=== PATIENT | female | born 1950 | race Caucasian/White ===

== ENCOUNTER 2016-05-28 11:57 | Inpatient (IN) | payer OTHER ==
[~2016-05-28] VITALS: Ht 170.2 cm; Wt 60.0 kg
[2016-05-28 11:58] VITALS: BP 93/53; PULSE 56; RESP 17; TEMP 98.1; O2SAT 99
--- NOTE | 2016-05-28 12:06 | PD ---
HPI Chief Complaint: SYNCOPE Time Seen by Provider: 12:06 Travel History International Travel<30 days: No Contact w/Intl Traveler<30days: No History of Present Illness HPI 65-year-old female with a history of cardiomyopathy and CVA is brought to the emergency department by EMS for evaluation of syncope. Per EMS report the patient was sitting in the waiting room at a local urgent care waiting to be seen when she had an episode of syncope. When they arrived on scene the patient 's blood pressure 78/50 and she was experiencing presyncopal symptoms with nausea. She was given a liter of fluids and Zofran and reports improvement of symptoms. The patient states that for the past week she has felt as though she has a sinus infection. States that she's had nasal congestion and sinus pressure for a week. States that she's also had a mild headache. States that for the past 2 days she's had a productive cough. States that this morning when she woke up she was feeling weak and her cold symptoms were worse so she went to an urgent care to be seen. States that while she was sitting in the urgent care last thing she remember was feeling very lightheaded, nauseous and diaphoretic. She states that she was told that she then passed out. The next and she remembers is EMS arriving and taking her to the hospital. She states that she has a history of stress and viral induced cardiomyopathy that began 2 years ago resulting in an ejection fraction of 20% at that time. States that since she has been on medications and exercising her most recent ejection fraction was 57% 6 months ago. States 2 years ago she had a cardiac catheterization that showed clear coronaries. States that she does have low blood pressure and typically runs about 100/70. States that she did have a stroke as a result of her low ejection fraction, states that she formed a clot in her heart which then caused CVA. She denies any chest pain, shortness of breath, abdominal pain, vomiting, diarrhea, swelling of the extremities, numbness or tingling. The patient is here visiting from [place] for 1 week. No other complaints. [facility] Past Medical History Cardiomyopathy: Yes Cerebrovascular Accident: Yes Social History Alcohol Use: No Tobacco Use: No Allergies-Medications (Allergen,Severity, Reaction): Coded Allergies: Penicillin (Verified Allergy, Unknown, 05/28/16) Reported Meds & Prescriptions Reported Meds & Active Scripts Active Reported Eq Mucus ER (Guaifenesin) 600 Mg Tab 600 Mg PO Q4HR Co Q 10 (Coenzyme Q10 (Ubidecarenone)) 100 Mg Cap 100 Mg PO DAILY Calcium (Calcium Carbonate) 600 Mg Tab 600 Mg PO HS Aspirin DR (Aspirin) 81 Mg Tabdr 81 Mg PO DAILY Atorvastatin (Atorvastatin Calcium) 10 Mg Tab 10 Mg PO HS Spironolactone 25 Mg Tab 25 Mg PO DAILY Lisinopril 5 Mg Tab 5 Mg PO HS Coreg (Carvedilol) 6.25 Mg Tab 6.25 Mg PO HS Coreg (Carvedilol) 3.125 Mg Tab 3.125 Mg PO DAILY Review of Systems Except as stated in HPI: all other systems reviewed are Neg Physical Exam Narrative GENERAL: Well-nourished and well-developed pleasant female patient in no acute distress who is nontoxic appearing. SKIN: Warm and dry. HEAD: Normocephalic and atraumatic. EYES: No injection, drainage, or hyphema noted. PERRLA. EOMI. ENT: No nasal drainage noted. Oropharynx is clear and then a membranes are within normal limits bilaterally. NECK: Supple and the trachea is midline. CARDIOVASCULAR: Regular rate and rhythm. RESPIRATORY: Breath sounds are equal bilaterally with no accessory muscle use, wheezing, rhonchi, or crackles. GASTROINTESTINAL: Abdomen is soft, non-tender, and nondistended. MUSCULOSKELETAL: No obvious deformities, swelling, cyanosis, or ecchymosis is present throughout the upper and lower extremities. Patient has full range of motion without any signs of neurovascular compromise. NEUROLOGICAL: Awake, alert, and oriented. Normal speech and gait. Cranial nerves are grossly intact. Data Data Last Documented VS Vital Signs Date Time Temp Pulse Resp B/P Pulse Ox O2 Delivery O2 Flow Rate FiO2 05/28/16 12:13 100 Room Air 05/28/16 11:58 98.1 56 17 93/53 Orders Electrocardiogram (05/28/16 12:03) Complete Blood Count With Diff (05/28/16 12:03) Comprehensive Metabolic Panel (05/28/16 12:03) Magnesium (Mg) (05/28/16 12:03) B-Type Natriuretic Peptide (05/28/16 12:03) Troponin I (05/28/16 12:03) Act Partial Throm Time (Ptt) (05/28/16 12:03) Prothrombin Time / Inr (Pt) (05/28/16 12:03) Urinalysis - C+S If Indicated (05/28/16 12:03) Chest, Single Ap (05/28/16 12:03) Ecg Monitoring (05/28/16 12:03) Iv Access Insert/Monitor (05/28/16 12:03) Oximetry (05/28/16 12:03) Sodium Chloride 0.9% Flush (Ns Flush) (05/28/16 12:15) Ct Brain W/O Iv Contrast(Rout) (05/28/16 12:13) Influenzae A/B Antigen (05/28/16 13:17) Ceftriaxone Inj (Rocephin Inj) (05/28/16 13:30) Admit Order (Ed Use Only) (05/28/16 14:25) Labs Laboratory Tests Test 05/28/16 05/28/16 12:20 13:55 White Blood Count 2.3 TH/MM3 Red Blood Count 3.85 MIL/MM3 Hemoglobin 11.4 GM/DL Hematocrit 33.9 % Mean Corpuscular Volume 88.1 FL Mean Corpuscular Hemoglobin 29.6 PG Mean Corpuscular Hemoglobin 33.6 % Concent Red Cell Distribution Width 13.9 % Platelet Count 129 TH/MM3 Mean Platelet Volume 9.0 FL Neutrophils (%) (Auto) 65.0 % Lymphocytes (%) (Auto) 21.5 % Monocytes (%) (Auto) 12.5 % Eosinophils (%) (Auto) 0.2 % Basophils (%) (Auto) 0.8 % Neutrophils # (Auto) 1.5 TH/MM3 Lymphocytes # (Auto) 0.5 TH/MM3 Monocytes # (Auto) 0.3 TH/MM3 Eosinophils # (Auto) 0.0 TH/MM3 Basophils # (Auto) 0.0 TH/MM3 CBC Comment DIFF FINAL Differential Comment Prothrombin Time 10.7 SEC Prothromb Time International 1.0 RATIO Ratio Activated Partial 25.7 SEC Thromboplast Time Sodium Level 138 MEQ/L Potassium Level 4.0 MEQ/L Chloride Level 106 MEQ/L Carbon Dioxide Level 22.0 MEQ/L Anion Gap 10 MEQ/L Blood Urea Nitrogen 13 MG/DL Creatinine 1.06 MG/DL Estimat Glomerular Filtration 52 ML/MIN Rate Random Glucose 110 MG/DL Calcium Level 8.3 MG/DL Magnesium Level 1.8 MG/DL Total Bilirubin 0.3 MG/DL Aspartate Amino Transf 20 U/L (AST/SGOT) Alanine Aminotransferase 20 U/L (ALT/SGPT) Alkaline Phosphatase 49 U/L Troponin I LESS THAN 0.02 NG/ML B-Type Natriuretic Peptide 38 PG/ML Total Protein 5.6 GM/DL Albumin 3.4 GM/DL Urine Color YELLOW Urine Turbidity CLEAR Urine pH 7.5 Urine Specific [place] 1.013 Urine Protein 30 mg/dL Urine Glucose (UA) NEG mg/dL Urine Ketones 40 mg/dL Urine Occult Blood NEG Urine Nitrite NEG Urine Bilirubin NEG Urine Urobilinogen 2.0 MG/DL Urine Leukocyte Esterase NEG Urine RBC 2 /hpf Urine WBC 1 /hpf Urine Squamous Epithelial 1 /hpf Cells Urine Hyaline Casts 21 /lpf Urine Mucus FEW /lpf Microscopic Urinalysis Comment CULT NOT INDICATED MDM Medical Decision Making Medical Screen Exam Complete: Yes Emergency Medical Condition: Yes Differential Diagnosis Viral illness versus dehydration versus heart failure versus electrolyte abnormality versus URI versus pneumonia Narrative Course 65-year-old female with a history of cardiomyopathy presents to the emergency department for evaluation of syncopal episode with cough and cold symptoms. Per EMS she was initially hypotensive on scene with a blood pressure of 78/50. Patient's blood pressure now is 93/53. Heart rate is 56 bpm. Physical examination is essentially unremarkable. I reviewed EKG with my attending physician Dr. Riggs and it reads sinus bradycardia with a ventricular rate of 52 bpm, intraventricular conduction delay, normal axis, long QTC 506. Otherwise vital signs are within normal limits. CBC shows mild anemia with hemoglobin 11.4, hematocrit 33.9. Platelets are slightly low at 129. CMP shows mild renal insufficiency with a creatinine of 1.06, GFR 52. No prior for comparison. Mild hypocalcemia with a calcium of 8.3. Troponin is less than 0.02. BNP is within normal limits at 38. Coags are unremarkable. Urinalysis shows 30 protein, 40 ketones, few mucus. Influenza swab is positive for flu B antigen. Chest x-ray shows patchy airspace disease in bilateral lower lobes but worse in right lower lobe. Head CT is negative for any acute abnormalities. Patient has remained stable and without complaint while here in the emergency department. She has been given Rocephin 1 g IV for pneumonia and Tamiflu 75 mg orally for influenza. Withheld Zithromax due to side effects of prolonged QT. The patient will be kept under observation for syncope with prolonged QTc and history of cardiomyopathy. I discussed the case with my attending physician Dr. Garcia who is aware of the patients history, physical examination findings, and treatment plan. Physician Communication Physician Communication I spoke with Dr. Joseph [facility] resident who agrees to admit the patient to Dr. Saba's service. Diagnosis Primary Impression: Syncope Qualified Code: R55 - Syncope, unspecified syncope type Additional Impressions: Prolonged Q-T interval on ECG Pneumonia Qualified Code: J18.9 - Pneumonia of both lower lobes due to infectious organism Influenza B Hx of cardiomyopathy Admitting Information Admitting Physician Requests: Observation Caren Morejon May 28, 2016 12:06
[2016-05-28 12:13] VITALS: O2SAT 100
[2016-05-28] MEDS ORDERED: SODIUM CHLORIDE 0.9% FLUSH 10 ML FLUSH IVF PRN (12:15)
[2016-05-28 12:43] LABS: AUTOMATED NEUTROPHIL # 1.5 TH/MM3 (1.8-7.7); BASOPHIL % 0.8 % (0.0-2.0); EOSINOPHIL % 0.2 % (0.0-4.0); HEMATOCRIT 33.9 % (35.0-46.0); HEMO FLAGS DIFF FINAL; LYMPH % 21.5 % (9.0-44.0); LYMPHOCYTE # 0.5 TH/MM3 (1.0-4.8); MEAN CELL VOLUME 88.1 FL (80.0-100.0); MEAN CORPUSCULAR HEMOGLOBIN 29.6 PG (27.0-34.0); MEAN CORPUSCULAR HGB CONC 33.6 % (32.0-36.0); MONO % 12.5 % (0.0-8.0); PLATELET COUNT 129 TH/MM3 (150-450); RED BLOOD COUNT 3.85 MIL/MM3 (4.00-5.30); RED CELL DISTRIBUTION WIDTH 13.9 % (11.6-17.2); WHITE BLOOD COUNT 2.3 TH/MM3 (4.0-11.0)
[2016-05-28 12:55] LABS: APTT (PATIENT) 25.7 SEC (24.3-30.1); PROTHROMBIN TIME - PATIENT 10.7 SEC (9.8-11.6)
[2016-05-28 13:06] LABS: ALT (GPT) 20 U/L (10-53); ANION GAP 10 MEQ/L (5-15); AST (GOT) 20 U/L (15-37); BLOOD UREA NITROGEN 13 MG/DL (7-18); CHLORIDE 106 MEQ/L (98-107); GLOMERULAR FILTRATION RATE 52 ML/MIN (>89); MAGNESIUM 1.8 MG/DL (1.5-2.5); SODIUM (NA) 138 MEQ/L (136-145)
[2016-05-28 13:09] LABS: ALKALINE PHOSPHATASE 49 U/L (45-117); TOTAL BILIRUBIN ADULT 0.3 MG/DL (0.2-1.0)
--- NOTE | 2016-05-28 13:14 | RADRPT ---
EXAM DATE/TIME: 05/28/2016 12:15 [facility] COMPARISON: No previous studies available for comparison. INDICATIONS : Congestion with shortness of breath, and weakness. MEDICAL HISTORY : Stroke. Myocardial infarction. SURGICAL HISTORY : None. ENCOUNTER: Initial ACUITY: 1 day PAIN SCORE: 0/10 LOCATION: Bilateral chest FINDINGS: Patchy air-space disease is seen in both lung bases worse on the right than the left. The heart is m inimally enlarged. Pulmonary vascularity is normal. There is no pneumothorax. CONCLUSION: Patchy air-space disease right lower lobe. Jorje Wong MD FACR on May 28, 2016 at 13:03 Board Certified Radiologist. This report was verified electronically.
[2016-05-28] MEDS ORDERED: cefTRIAXone INJ 1,000 MG in SODIUM CHLORIDE 0.9% INJ 100 ML IV ONE (13:30)
--- NOTE | 2016-05-28 14:10 | RADRPT ---
EXAM DATE/TIME: 05/28/2016 13:38 [facility] COMPARISON: No previous studies available for comparison. INDICATIONS : Syncopal episode, recent sinus infection RADIATION DOSE: 37.79 CTDIvol (mGy) MEDICAL HISTORY : Cardiovascular disease. SURGICAL HISTORY : None. ENCOUNTER: Initial ACUITY: 1 day PAIN SCALE: 0/10 LOCATION: cranial TECHNIQUE: Multiple contiguous axial images were obtained of the head. Using automated exposure control and adj ustment of the mA and/or kV according to patient size, radiation dose was kept as low as reasonably a chievable to obtain optimal diagnostic quality images. FINDINGS: CEREBRUM: The ventricles are normal for age. No evidence of midline shift, mass lesion, hemorrhage or acute in farction. No extra-axial fluid collections are seen. POSTERIOR FOSSA: The cerebellum and brainstem are intact. The 4th ventricle is midline. The cerebellopontine angle i s unremarkable. EXTRACRANIAL: The visualized portion of the orbits is intact. SKULL: The calvaria is intact. No evidence of skull fracture. CONCLUSION: Negative exam. Angus Xavier MD on May 28, 2016 at 14:08 Board Certified Radiologist. This report was verified electronically.
[2016-05-28] MEDS ORDERED: ATOR10TA15 PO (14:24)
[2016-05-28] MEDS ORDERED: CO Q100C9 PO (14:24)
[2016-05-28] MEDS ORDERED: SPIR25TA PO (14:24)
[2016-05-28] MEDS ORDERED: LISI-519 PO (14:24)
[2016-05-28] MEDS ORDERED: CARV6.25 PO (14:24)
[2016-05-28] MEDS ORDERED: ASPI81TA5 PO (14:24)
[2016-05-28] MEDS ORDERED: CARV3.125 PO (14:24)
[2016-05-28] MEDS ORDERED: CALC600T25 PO (14:24)
[2016-05-28] MEDS ORDERED: GUAI1TAB15 PO (14:24)
--- NOTE | 2016-05-28 14:26 | HHI.HP ---
HPI Service Family Medicine Primary Care Physician Non-Staff Admission Diagnosis Syncope, Prolonged QT, Pneumonia, Influenza B Diagnoses: International Travel<30 Days: No Contact w/Intl Traveler<30days: No Known Affected Area: No History of Present Illness HPI: 65 y/o female presenting after syncopal episode. Had a sinus infection in March (has deviated septum) - treated with Clindamycin. Since that time, she has been feeling well up until Thursday, 2016. At the same time she was experiencing sinus pain. Over the course of the week --- kept feeling chilled. Started with dry cough 1-2 days ago. Also she experienced increasing sinus pressure under her eyes. Increasing post nasal drip and +body aches. Her ribs hurt when she coughs. More recently, she was sitting in urgent care and she felt her face was feeling tingling. says that "I don't think she ever really passed out." The last thing she remembers was looking at her phone, and then when say came to, she saw the paramedics and physician at her side. She reports sweating profusely. She reports staying adequately hydrated. Denies bowel or bladder loss. Denies uncontrollable movement of limbs. Denies palpitations. Episode last about 5mintues. Last suffered bronchitis and pneumonia 2 years ago that was treated as an outpatient. Previous syncopal episode with extreme emotions - watching video on surgery. ( Guillaume Joseph MD R2) Review of Systems Constitutional: COMPLAINS OF: Fatigue, Chills, Dizziness, DENIES: Fever, Change in appetite Eyes: DENIES: Blurred vision Ears, nose, mouth, throat: COMPLAINS OF: Nasal discharge, Running Nose, Sinus Pain Respiratory: COMPLAINS OF: Cough, Shortness of breath Cardiovascular: COMPLAINS OF: Syncope, DENIES: Chest pain, Lower Extremity Edema, Orthopnea Gastrointestinal: COMPLAINS OF: Nausea, DENIES: Abdominal pain, Black stools, Bloody stools, Constipation, Diarrhea, Vomiting Musculoskeletal: DENIES: Joint pain Integumentary: DENIES: Rash Neurologic: COMPLAINS OF: Headache (Guillaume Joseph MD R2) Past Family Social History Past Medical History Cardiomyopathy - Viral with EF 20% in 2014 - Last ECHO 2014 59% HTN Past Surgical History Denies (Guillaume Joseph MD R2) Allergies: Coded Allergies: Penicillin (Verified Allergy, Unknown, 05/28/16) Family History Patient reports no significant heart disease, cancer, or DM in her immediate family. Social History EtOH remotely Tob denies No IVDU, illicits From [place] and returning on 06/02/16. (Guillaume Joseph MD R2) Physical Exam Vital Signs Vital Signs Date Time Temp Pulse Resp B/P Pulse Ox O2 Delivery O2 Flow Rate FiO2 05/28/16 12:13 100 Room Air 05/28/16 12:13 99 Room Air 05/28/16 11:58 98.1 56 17 93/53 99 Physical Exam GENERAL: NAD, breathing comfortably. SKIN: No rashes, ecchymoses or lesions. Cool and dry. HEAD: TTP over maxillary sinuses. EYES: Pupils equal round and reactive. Extraocular motions intact. ENT: Nose without bleeding, purulent drainage or septal hematoma. NECK: Trachea midline. No JVD or lymphadenopathy. CARDIOVASCULAR: Regular rate and rhythm without murmurs, gallops, or rubs. RESPIRATORY: Clear to auscultation. GASTROINTESTINAL: Abdomen soft, non-tender, nondistended. MUSCULOSKELETAL: Extremities without clubbing, cyanosis, or edema. No joint tenderness, effusion, or edema noted. No calf tenderness. Negative Homans sign bilaterally. NEUROLOGICAL: Awake and alert. Cranial nerves II through XII intact. Motor and sensory grossly within normal limits. Five out of 5 muscle strength in all muscle groups. Normal speech. Laboratory Laboratory Tests Test 05/28/16 12:20 White Blood Count 2.3 Red Blood Count 3.85 Hemoglobin 11.4 Hematocrit 33.9 Mean Corpuscular Volume 88.1 Mean Corpuscular Hemoglobin 29.6 Mean Corpuscular Hemoglobin 33.6 Concent Red Cell Distribution Width 13.9 Platelet Count 129 Mean Platelet Volume 9.0 Neutrophils (%) (Auto) 65.0 Lymphocytes (%) (Auto) 21.5 Monocytes (%) (Auto) 12.5 Eosinophils (%) (Auto) 0.2 Basophils (%) (Auto) 0.8 Neutrophils # (Auto) 1.5 Lymphocytes # (Auto) 0.5 Monocytes # (Auto) 0.3 Eosinophils # (Auto) 0.0 Basophils # (Auto) 0.0 CBC Comment DIFF FINAL Differential Comment Prothrombin Time 10.7 Prothromb Time International 1.0 Ratio Activated Partial 25.7 Thromboplast Time Sodium Level 138 Potassium Level 4.0 Chloride Level 106 Carbon Dioxide Level 22.0 Anion Gap 10 Blood Urea Nitrogen 13 Creatinine 1.06 Estimat Glomerular Filtration 52 Rate Random Glucose 110 Calcium Level 8.3 Magnesium Level 1.8 Total Bilirubin 0.3 Aspartate Amino Transf 20 (AST/SGOT) Alanine Aminotransferase 20 (ALT/SGPT) Alkaline Phosphatase 49 Troponin I LESS THAN 0.02 B-Type Natriuretic Peptide 38 Total Protein 5.6 Albumin 3.4 Date/Time Procedure Status Source Growth 05/28/16 13:55 Influenza Types A,B Antigen (ADDIE) - Final Complete Nasal Washing Positive For Flu B Antigen (Guillaume Joseph MD R2) Result Diagram: 05/28/16 1220 05/28/16 1220 Imaging Last [address] 05/28/16 1213 Signed Impressions: Service Date/Time: Thursday, May 28, 2016 13:38 - CONCLUSION: Negative exam. Angus Xavier MD (Guillaume Joseph MD R2) Septic Shock Reassessment Heart: Regular rate and rhythm Lungs: Clear Skin: Warm Peripheral Pulses: Bounding Right Radial Bounding Left Radial (Guillaume Jsoeph MD R2) Assessment and Plan Assessment and Plan 65 y/o pleasant female with PMHx of recurrent sinus infections, viral cardiopathy in 2013 that resulted in an EF of 20% --> corrected to 59% in 2016, and bronchitis, who presented to [facility] via [facility] after ahving a syncopal episode at an urgent care. Found to be hypotensive to 78/50, and satting at 85% . CXR showed RLL patchy infiltrate, she has received Rocephin x 1 and will be admitted for syncope work-up, community acquired pneumonia, and +Flu. Code Status Full Code. (Guillaume Joseph MD R2) Attending Attestation THIS CASE WAS DISCUSSED WITH THE RESIDENT PHYSICIAN. I HAVE REVIEWED THE RECORD AND AGREE WITH THE ABOVE NOTE AND PLAN OF CARE WAS DISCUSSED. I HAVE AUTHORIZED THE ORDER FOR PLACEMENT IN OUT-PATIENT OBSERVATION STATUS. (Chandler Saba MD) Problem List: (1) Pneumonia Status: Acute Plan: CXR showed patchy airspace disease in RLL. Will treat as CAP. -Rocephin 1 g q 24 hr IV -Doxy instead of Azithro for atypical coverage (100 mg q 12 hr IV) given QT prolongation. -Solumedrol 40 q 12 hr IV -Breathing tx (duonebs) q 6 hrs schedule, albuterol neb q 2 hr PRN SOB -Guaifen-DM 200-20 mg 10 mg q 4 hours cough -Sputum culture, legionella and strep ag in urine -Incentive spirometry -Vitals q 4 hours, O2 as needed. (2) Prolonged Q-T interval on ECG Status: Acute Plan: QT in 2016 was 490 - Today Avoid QT prolonging meds - i.e. Macrolides and Zofran. (3) Syncope Status: Acute Plan: Impression: Likely related to dehydration and underlying infection (Flu / CAP). Not concerning for seizures. Cannot rule out cardiac origin. -Give 2 L NS bolus to increase BP -ECHO to rule out worsening cardiomyopathy -Trop and EKG x 2; LBBB has been seen on previous EKG in May 2015, first trop negtaive. -Head CT was negative for acute change (infarct or bleed) -Orthostatic Vitals -ASA 81 mg daily (4) Influenza B Status: Acute Plan: Tamiflu 75 mg PO daily x 10 days. Fluid support Rest Droplet precautions (5) Hx of cardiomyopathy Status: Acute Plan: ECHO as above. (6) Nutrition, metabolism, and development symptoms Status: Acute Plan: Nut: Reg basic Electrolytes: at goal. DVT: Lovenox 30 mg sq daily with SCDs. dw Dr. Saba sdw Dr. Ella Nayak. (Guillaume Joseph MD R2) Problem Qualifiers (1) Pneumonia: Qualified Code: J18.9 - Pneumonia of both lower lobes due to infectious organism (2) Syncope: Qualified Code: R55 - Syncope, unspecified syncope type Guillaume Joseph MD R2 May 28, 2016 14:26 Chandler Saba MD May 28, 2016 16:33
[2016-05-28 14:27] LABS: BLOOD, URINE NEG (NEG); COMMENT (UR) CULT NOT INDICATED; CULTURE IF INDICATED CULT NOT INDICATED; GLUCOSE,URINE NEG (NEG); HYALINE CAST, URINE 21 /lpf (RARE); KETONE, URINE 40 mg/dL (NEG); MUCUS URINE FEW /lpf (OCC); NITRITE,URINE NEG (NEG); PH, URINE 7.5 (5.0-8.5); SQUAMOUS EPITHELIAL CELL URINE 1 /hpf (0-5); URINE COLOR YELLOW (YELLW/STRAW)
[2016-05-28 14:28] VITALS: BP 91/53; PULSE 59; RESP 20; TEMP 98.4; O2SAT 97
[2016-05-28] MEDS ORDERED: OSELTAMIVIR PHOSPHATE 75 MG CAP PO ONE (14:30)
[2016-05-28] MEDS ORDERED: RESP: ALBUTEROL 2.5 MG/IPRATROPIUM 0.5 MG NEB (PRN) INH (14:45)
[2016-05-28] MEDS ORDERED: BISACODYL 10 MG SUPP RECTAL PRN (14:45)
[2016-05-28] MEDS ORDERED: NALOXONE HCL 0.4 MG/ML AMP IV PRN (14:45)
[2016-05-28] MEDS ORDERED: ACETAMINOPHEN 325 MG TAB PO PRN (14:45)
[2016-05-28] MEDS ORDERED: SODIUM CHLORIDE 0.9% FLUSH 10 ML FLUSH IV FLUSH PRN (14:45)
[2016-05-28] MEDS ORDERED: SODIUM CHLOR 0.9% 1000 ML INJ 1,000 ML IV ONE (15:00)
[2016-05-28] MEDS ORDERED: guaiFENesin/DEXTROMETHORPHAN 200 MG/20 MG/10 ML CUP PO PRN (15:00)
[2016-05-28] MEDS: guaiFENesin E.R. 600 MG TAB PO SCH ×3 (16:00→23:48)
[2016-05-28] MEDS: RESP: ALBUTEROL 2.5 MG/IPRATROPIUM 0.5 MG NEB (SCH) INH ×2 (16:02→21:16)
--- NOTE | 2016-05-28 16:33 | HHI.HP ---
HPI Service Family Medicine Primary Care Physician Non-Staff Admission Diagnosis Syncope, Prolonged QT, Pneumonia, Influenza B Diagnoses: (1) Pneumonia (2) Prolonged Q-T interval on ECG (3) Syncope (4) Influenza B (5) Hx of cardiomyopathy (6) Nutrition, metabolism, and development symptoms International Travel<30 Days: No Contact w/Intl Traveler<30days: No Known Affected Area: No History of Present Illness 65-year-old female presenting to the emergency department following a syncopal episode at an urgent care. She went to the urgent care earlier today for one- week history of subjective fevers and chills with body aches, nonproductive cough, and sinus pressure under her eyes with sinus pain. She has been " putting up" with these symptoms for the last week, however developed chest discomfort with coughing this morning and decided to present to the urgent care. While at the urgent care, she was sitting down and leaning forward when she had an apparent syncopal episode. She did not hit her head, did not lose bowel or bladder incontinence, did not have any seizure type activity. Review of Systems Constitutional: COMPLAINS OF: Diaphoretic episodes, Fever, Chills, DENIES: Dizziness Eyes: DENIES: Blurred vision, Eye pain, Double Vision Ears, nose, mouth, throat: COMPLAINS OF: Nasal discharge, Running Nose, Sinus Pain, DENIES: Throat pain, Toothache Respiratory: COMPLAINS OF: Cough, DENIES: Wheezing, Sputum production, Shortness of breath Cardiovascular: COMPLAINS OF: Chest pain, DENIES: Palpitations, Dyspnea on Exertion, Lower Extremity Edema Gastrointestinal: DENIES: Abdominal pain, Constipation, Diarrhea, Nausea, Vomiting Musculoskeletal: COMPLAINS OF: Muscle aches, DENIES: Joint pain, Back pain, Neck pain Psychiatric: COMPLAINS OF: Anxiety Past Family Social History Past Medical History Cardiomyopathy - Viral with EF 20% in 2014 - Last ECHO 2014 59% HTN Past Surgical History Denies Reported Medications Reported Eq Mucus ER (Guaifenesin) 600 Mg Tab 600 Mg PO Q4HR Co Q 10 (Coenzyme Q10 (Ubidecarenone)) 100 Mg Cap 100 Mg PO DAILY Calcium (Calcium Carbonate) 600 Mg Tab 600 Mg PO HS Aspirin DR (Aspirin) 81 Mg Tabdr 81 Mg PO DAILY Atorvastatin (Atorvastatin Calcium) 10 Mg Tab 10 Mg PO HS Spironolactone 25 Mg Tab 25 Mg PO DAILY Lisinopril 5 Mg Tab 5 Mg PO HS Coreg (Carvedilol) 6.25 Mg Tab 6.25 Mg PO HS Coreg (Carvedilol) 3.125 Mg Tab 3.125 Mg PO DAILY Allergies: Coded Allergies: Penicillin (Verified Allergy, Unknown, 05/28/16) Family History Patient reports no significant heart disease, cancer, or DM in her immediate family. Social History EtOH remotely Tob denies No IVDU, illicits From [place] and returning on 06/02/16. Physical Exam Vital Signs Vital Signs Date Time Temp Pulse Resp B/P Pulse Ox O2 Delivery O2 Flow Rate FiO2 05/28/16 14:28 98.4 59 20 91/53 97 Room Air 05/28/16 12:13 100 Room Air 05/28/16 12:13 99 Room Air 05/28/16 11:58 98.1 56 17 93/53 99 Physical Exam GENERAL: NAD, breathing comfortably. SKIN: No rashes, ecchymoses or lesions. Cool and dry. HEAD: TTP over maxillary sinuses. EYES: Pupils equal round and reactive. Extraocular motions intact. NECK: Trachea midline. No JVD or lymphadenopathy. CARDIOVASCULAR: Regular rate and rhythm without murmurs, gallops, or rubs. RESPIRATORY: Clear to auscultation. GASTROINTESTINAL: Abdomen soft, non-tender, nondistended. MUSCULOSKELETAL: Extremities without clubbing, cyanosis, or edema. NEUROLOGICAL: Awake and alert. Laboratory Laboratory Tests Test 05/28/16 05/28/16 12:20 13:55 White Blood Count 2.3 Red Blood Count 3.85 Hemoglobin 11.4 Hematocrit 33.9 Mean Corpuscular Volume 88.1 Mean Corpuscular Hemoglobin 29.6 Mean Corpuscular Hemoglobin 33.6 Concent Red Cell Distribution Width 13.9 Platelet Count 129 Mean Platelet Volume 9.0 Neutrophils (%) (Auto) 65.0 Lymphocytes (%) (Auto) 21.5 Monocytes (%) (Auto) 12.5 Eosinophils (%) (Auto) 0.2 Basophils (%) (Auto) 0.8 Neutrophils # (Auto) 1.5 Lymphocytes # (Auto) 0.5 Monocytes # (Auto) 0.3 Eosinophils # (Auto) 0.0 Basophils # (Auto) 0.0 CBC Comment DIFF FINAL Differential Comment Prothrombin Time 10.7 Prothromb Time International 1.0 Ratio Activated Partial 25.7 Thromboplast Time Sodium Level 138 Potassium Level 4.0 Chloride Level 106 Carbon Dioxide Level 22.0 Anion Gap 10 Blood Urea Nitrogen 13 Creatinine 1.06 Estimat Glomerular Filtration 52 Rate Random Glucose 110 Calcium Level 8.3 Magnesium Level 1.8 Total Bilirubin 0.3 Aspartate Amino Transf 20 (AST/SGOT) Alanine Aminotransferase 20 (ALT/SGPT) Alkaline Phosphatase 49 Total Creatine Kinase 89 Troponin I LESS THAN 0.02 B-Type Natriuretic Peptide 38 Total Protein 5.6 Albumin 3.4 Urine Color YELLOW Urine Turbidity CLEAR Urine pH 7.5 Urine Specific [place] 1.013 Urine Protein 30 Urine Glucose (UA) NEG Urine Ketones 40 Urine Occult Blood NEG Urine Nitrite NEG Urine Bilirubin NEG Urine Urobilinogen 2.0 Urine Leukocyte Esterase NEG Urine RBC 2 Urine WBC 1 Urine Squamous Epithelial 1 Cells Urine Hyaline Casts 21 Urine Mucus FEW Microscopic Urinalysis Comment CULT NOT INDICATED Date/Time Procedure Status Source Growth 05/28/16 13:55 Influenza Types A,B Antigen (ADDIE) - Final Complete Nasal Washing Positive For Flu B Antigen Result Diagram: 05/28/16 1220 05/28/16 1220 Imaging Last [address] 05/28/16 1213 Signed Impressions: Service Date/Time: Saturday, May 28, 2016 13:38 - CONCLUSION: Negative exam. Angus Xavier MD Chest x-ray: Patchy airspace disease of the right lower lobe Assessment and Plan Assessment and Plan 65 y/o pleasant female with PMHx of recurrent sinus infections, viral cardiopathy in 2014 that resulted in an EF of 20% --> corrected to 59% in 2016, and bronchitis, who presented to [facility] via [facility] after ahving a syncopal episode at an urgent care. Found to be hypotensive to 78/50, and satting at 85% . CXR showed RLL patchy infiltrate, she has received Rocephin x 1 and will be admitted for syncope work-up, community acquired pneumonia, and +Flu. Problem List: (1) Pneumonia Status: Acute Plan: CXR showed patchy airspace disease in RLL. Will treat as CAP. -Rocephin 1 g q 24 hr IV -Doxy instead of Azithro for atypical coverage (100 mg q 12 hr IV) given QT prolongation. -Solumedrol 40 q 12 hr IV -Breathing tx (duonebs) q 6 hrs schedule, albuterol neb q 2 hr PRN SOB -Guaifen-DM 200-20 mg 10 mg q 4 hours cough -Sputum culture, legionella and strep ag in urine -Incentive spirometry -Vitals q 4 hours, O2 as needed. (2) Prolonged Q-T interval on ECG Status: Acute Plan: QT in 2016 was 490 - Today QTC is 510 Avoid QT prolonging meds - i.e. Macrolides and Zofran. (3) Syncope Status: Acute Plan: Impression: Likely related to dehydration and underlying infection (Flu / CAP). Not concerning for seizures. Cannot rule out cardiac origin. -Give 2 L NS bolus to increase BP -ECHO to rule out worsening cardiomyopathy -Trop and EKG x 2; LBBB has been seen on previous EKG in May 2015, first trop negtaive. -Head CT was negative for acute change (infarct or bleed) -Orthostatic Vitals -ASA 81 mg daily (4) Influenza B Status: Acute Plan: Tamiflu 75 mg PO daily x 10 days. Fluid support Rest Droplet precautions (5) Hx of cardiomyopathy Status: Acute Plan: ECHO as above. (6) Nutrition, metabolism, and development symptoms Status: Acute Plan: Nut: Reg basic Electrolytes: at goal. DVT: Lovenox 30 mg sq daily with SCDs. dw Dr. Wandy paizw Dr. Ella Nayak. Problem Qualifiers (1) Pneumonia: Qualified Code: J18.9 - Pneumonia of both lower lobes due to infectious organism (2) Syncope: Qualified Code: R55 - Syncope, unspecified syncope type Chandler Saba MD May 28, 2016 16:33
[2016-05-28] MEDS: methylPREDNISolone SOD SUCC 40 MG/1 ML VIAL IV SCH (17:39)
[2016-05-28] MEDS: ENOXAPARIN SODIUM 30 MG/0.3 ML SYRINGE SQ SCH (17:42)
[2016-05-28] MEDS: SODIUM CHLOR 0.9% 1000 ML INJ 1,000 ML IV SCH ×2 (17:43→23:49)
[2016-05-28] MEDS: DOXYCYCLINE INJ 100 MG in SODIUM CHLORIDE 0.9% INJ 100 ML IV SCH (18:11)
[2016-05-28 18:39] VITALS: BP 130/60; PULSE 58; RESP 16; TEMP 98; O2SAT 96
[2016-05-28 19:12] VITALS: BP 122/59; PULSE 63; RESP 20; TEMP 97.4; O2SAT 95
[2016-05-28] MEDS: SODIUM CHLORIDE 0.9% FLUSH 10 ML FLUSH IV FLUSH SCH (20:15)
[2016-05-28] MEDS ORDERED: ATORVASTATIN 10 MG TAB PO SCH (21:00)
[2016-05-28 23:53] VITALS: BP 115/56; PULSE 53; RESP 20; TEMP 97.5; O2SAT 98
[2016-05-29] VITALS (7 sets, daily range): BP systolic 101–125; BP diastolic 52–98; PULSE 47–64; RESP 17–20; TEMP 97.4–97.8; O2SAT 95–98
[2016-05-29] MEDS: methylPREDNISolone SOD SUCC 40 MG/1 ML VIAL IV SCH ×2 (04:18→12:52)
[2016-05-29] MEDS: DOXYCYCLINE INJ 100 MG in SODIUM CHLORIDE 0.9% INJ 100 ML IV SCH (04:18)
[2016-05-29] MEDS: guaiFENesin E.R. 600 MG TAB PO SCH ×3 (04:18→12:51)
[2016-05-29] MEDS: RESP: ALBUTEROL 2.5 MG/IPRATROPIUM 0.5 MG NEB (SCH) INH ×2 (04:31→09:00)
[2016-05-29 07:15] LABS: ALT (GPT) 20 U/L (10-53); ANION GAP 9 MEQ/L (5-15); AST (GOT) 24 U/L (15-37); BICARBONATE 22.2 MEQ/L (21.0-32.0); BLOOD UREA NITROGEN 10 MG/DL (7-18); CHLORIDE 109 MEQ/L (98-107); GLOMERULAR FILTRATION RATE 78 ML/MIN (>89); POTASSIUM 4.2 MEQ/L (3.5-5.1); SODIUM (NA) 140 MEQ/L (136-145)
[2016-05-29 07:17] LABS: ALKALINE PHOSPHATASE 43 U/L (45-117); TOTAL BILIRUBIN ADULT 0.2 MG/DL (0.2-1.0)
[2016-05-29 07:40] LABS: AUTOMATED NEUTROPHIL # 1.7 TH/MM3 (1.8-7.7); BASOPHIL % 0.3 % (0.0-2.0); HEMATOCRIT 31.9 % (35.0-46.0); HEMO FLAGS DIFF FINAL; LYMPH % 25.6 % (9.0-44.0); LYMPHOCYTE # 0.6 TH/MM3 (1.0-4.8); MEAN CELL VOLUME 88.7 FL (80.0-100.0); MEAN CORPUSCULAR HEMOGLOBIN 29.6 PG (27.0-34.0); MEAN CORPUSCULAR HGB CONC 33.4 % (32.0-36.0); MONO % 5.3 % (0.0-8.0); NEUT % 68.8 % (16.0-70.0); PLATELET COUNT 130 TH/MM3 (150-450); RED CELL DISTRIBUTION WIDTH 14.3 % (11.6-17.2); WHITE BLOOD COUNT 2.5 TH/MM3 (4.0-11.0)
[2016-05-29] MEDS: SODIUM CHLORIDE 0.9% FLUSH 10 ML FLUSH IV FLUSH SCH (09:00)
[2016-05-29] MEDS: OSELTAMIVIR PHOSPHATE 75 MG CAP PO SCH ×2 (09:00→09:55)
[2016-05-29] MEDS ORDERED: ASPIRIN EC 81 MG TABEC PO SCH (09:00)
[2016-05-29] MEDS: SODIUM CHLOR 0.9% 1000 ML INJ 1,000 ML IV SCH (10:01)
[2016-05-29] MEDS ORDERED: cefTRIAXone INJ 1,000 MG in SODIUM CHLORIDE 0.9% INJ 100 ML IV SCH (12:00)
--- NOTE | 2016-05-29 12:11 | EC ---
Study Study Date:05/29/2016 STUDY CONCLUSIONS SUMMARY - Left ventricle: The cavity size was normal. Wall thickness was normal. Systolic function was mildly reduced. The estimated ejection fraction was in the range of 45% to 50%. Wall motion was normal; there were no regional wall motion abnormalities. - Aortic valve: Moderate regurgitation. Valve area: 2.28cm^2 (Vmax). - Left atrium: The atrium was dilated. Recommendations: Transesophageal echocardiography should be performed. If LV function is below 40, please consider prescribing an ACEI or ARB or document rationale for non-use. PROCEDURE DATA STUDY STATUS: Elective. Procedure: Transthoracic echocardiography. Image quality was good. Scanning was performed from the parasternal, apical, and subcostal acoustic windows. Study completion: The patient tolerated the procedure well. Transthoracic echocardiography. M-mode, complete 2D, complete spectral Doppler, and color Doppler. Height: Height: 67in. Weight: Weight: 134.7lb. Body mass index: BMI: 21.1kg/m^2. Body surface area: BSA: 1.71m^2. Patient status: Inpatient. CARDIAC ANATOMY LEFT VENTRICLE: The cavity size was normal. Wall thickness was normal. Systolic function was mildly reduced. The estimated ejection fraction was in the range of 45% to 50%. Wall motion was normal; there were no regional wall motion abnormalities. AORTIC VALVE: Trileaflet; normal thickness leaflets. Doppler: Transvalvular velocity was within the normal range. There was no stenosis. Moderate regurgitation. Valve area: 2.28cm^2 (Vmax). Indexed valve area: 1.33cm^2/m^2 (Vmax). Peak gradient: 12mm Hg (S). AORTA: The aorta was mildly dilated. Aortic root: The aortic root was normal in size. MITRAL VALVE: Structurally normal valve. Doppler: Transvalvular velocity was within the normal range. There was no evidence for stenosis. No regurgitation. Valve area by pressure half-time: 4cm^2. Indexed valve area by pressure half-time: 2.34cm^2/m^2. Peak gradient: 2mm Hg (D). LEFT ATRIUM: The atrium was dilated. RIGHT VENTRICLE: The cavity size was normal. Wall thickness was normal. PULMONIC VALVE: Doppler: Transvalvular velocity was within the normal range. There was no evidence for stenosis. No regurgitation. TRICUSPID VALVE: Structurally normal valve. Doppler: Transvalvular velocity was within the normal range. No regurgitation. Peak gradient: 19mm Hg (D). PULMONARY ARTERY: The main pulmonary artery was normal-sized. Systolic pressure was within the normal range. RIGHT ATRIUM: The atrium was normal in size. PERICARDIUM: There was no pericardial effusion. SYSTEMIC VEINS: Inferior vena cava: The vessel was normal in size. Patient weight: 134.7lb _Ejection fraction:_ 65-75% _Fractional shortening:_ 32% up to 5Kg 5-11.5Kg 11.6-22.9Kg 23-45Kg 45-57Kg Aortic Root 7-13 <17 13-22 17-27 17-27 LA diam 6-13 <23 24-38 33-47 37-40 RVID 10-17 7-15 7-15 7-18 8-17 LVIDd 12-22 <32 24-38 33-47 37-40 LVPW 2-4 3-6 5-7 6-8 7-8 IVS 2-4 3-6 5-7 6-8 7-8 BASIC MEASUREMENTS ADULT NORMAL Left ventricle LV internal dimension, ED, chordal 51.7 mm 43-52 level, PLAX LV internal dimension, ES, chordal *41.8 mm 23-38 level, PLAX Fractional shortening, chordal level, *19 % >29 PLAX LV posterior wall thickness, ED 8.46 mm IVS/LVPW ratio, ED 1.03 <1.3 Volume, ED, MOD, 1-plane 161 ml Volume, ES, MOD, 1-plane 66 ml Ejection fraction, MOD, 1-plane 59 % Stroke volume, MOD, 1-plane 95 ml Volume index, ED, MOD, 1-plane 94 ml/m^2 Volume index, ES, MOD, 1-plane 39 ml/m^2 Stroke index, MOD, 1-plane 55.6 ml/m^2 Volume, ED, MOD, 2-plane 126 ml Volume, ES, MOD, 2-plane 48 ml Ejection fraction, MOD, 2-plane 62 % Stroke volume, MOD, 2-plane 78 ml Volume index, ED, MOD, 2-plane 74 ml/m^2 Volume index, ES, MOD, 2-plane 28 ml/m^2 Stroke index, MOD, 2-plane 45.6 ml/m^2 Ventricular septum Septal thickness, ED 8.74 mm Aortic valve Leaflet separation 24 mm 15-26 Aorta Root diameter, ED 40 mm Left atrium Anterior-posterior dimension 44 mm Anterior-posterior dimension index *2.57 cm/m^2 <2.2 Right ventricle RV internal dimension, ED, PLAX *41.5 mm 19-38 BASIC MEASUREMENTS ADULT NORMAL Left ventricle LV internal dimension, ED 48.2 mm 37-56 LV internal dimension, ES 35.5 mm Fractional shortening *26 % 29-45 LV posterior wall, ED 11 mm 6-11 Septal/posterior wall ratio, ED 0.96 Relative wall thickness, ED *0.46 <0.45 Volume, ED, Teichholz 109 ml Volume, ES, Teichholz 52.6 ml Ejection fraction, Teichholz *51.7 % 64-83 Stroke volume, Teichholz 56.4 ml Volume index, ED, Teichholz 64 ml/m^2 Volume index, ES, Teichholz 31 ml/m^2 Stroke index, Teichholz 33 ml/m^2 Wall mass 190.4 g Wall mass index 111.3 g/m^2 Mass/height 1.12 g/cm Ventricular septum Septal thickness, ED 10.6 mm Aortic valve Leaflet separation 24 mm 15-26 Aorta Root diameter, ED *40 mm 20-37 DOPPLER MEASUREMENTS ADULT NORMAL Aortic valve Peak velocity, S 175 cm/s Peak gradient, S 12 mm Hg Valve area, Vmax 2.28 cm^2 Valve area index, Vmax 1.33 cm^2/m^2 Regurgitant velocity, ED 460 cm/s Regurgitant deceleration 1930 cm/s^2 Regurgitant pressure half-time 710 ms Regurgitant gradient, ED 85 mm Hg Mitral valve Peak E-wave velocity 77 cm/s Peak A-wave velocity 60.7 cm/s Pressure half-time 55 ms Peak gradient, D 2 mm Hg Peak E/A ratio 1.3 Valve area, pressure half-time 4 cm^2 Valve area index, pressure half-time 2.34 cm^2/m^2 Tricuspid valve Peak gradient, D 19 mm Hg Maximal inflow velocity 194 cm/s Systemic veins Estimated CVP 10 mm Hg Pulmonic valve Peak velocity, S 106 cm/s LEGEND: Mean values are shown as u=mean value. Asterisk (*) adkins values outside specified normal range. Prepared and signed by Scott Fu [id number]
[2016-05-29] MEDS ORDERED: DOXY100C PO ×2 (12:15→15:34)
[2016-05-29] MEDS ORDERED: OSEL75 PO (12:15)
--- NOTE | 2016-05-29 12:17 | HHI.DCPOC ---
Discharge Care Plan Diagnosis: (1) Hx of cardiomyopathy (2) Pneumonia (3) Influenza B (4) Syncope Goals to Promote Your Health See your physician specialist as scheduled. Call to notify them of current hospitalization; they may be able to request records to expedite follow-up. Please request echocardiogram, lab results, and physician documentation for this hospital stay prior to follow-up or request that your cardiology office does this. Take medications as prescribed. Directions to Meet Your Goals Take your medications as prescribed Follow your dietary instruction Follow activity as directed Keep your appointments as scheduled Take your immunizations and boosters as scheduled If your symptoms worsen call your PCP, if no PCP go to Urgent Care Center or Emergency Room Smoking is Dangerous to Your Health. Avoid second hand smoke Call the 24-hour hour crisis hotline for domestic abuse at Ella Nayak MD R1 May 29, 2016 12:17
--- NOTE | 2016-05-29 12:32 | HHI.FPPN ---
Subjective Remarks Patient was seen and examined this morning. She feels "great" and notes no chest pain, shortness of breath, fevers, chills, sweats. She offers that she did walk 6 miles outside the day before presenting due to being on vacation. She has no new symptoms, reporting also normal bowel and bladder function. No syncopal episodes and no shortness of breath with walking. Objective Vitals Vital Signs Date Time Temp Pulse Resp B/P Pulse Ox O2 Delivery O2 Flow Rate FiO2 05/29/16 10:36 54 20 112/58 95 05/29/16 10:36 64 20 108/61 96 05/29/16 10:35 47 103/56 05/29/16 08:38 97.8 53 20 125/98 95 05/29/16 08:10 51 05/29/16 04:16 97.4 56 20 101/52 98 05/29/16 02:27 50 05/28/16 23:53 97.5 53 20 115/56 98 05/28/16 19:12 97.4 63 20 122/59 95 05/28/16 18:39 98.0 58 16 130/60 96 05/28/16 14:28 98.4 59 20 91/53 97 Room Air 05/28/16 12:13 100 Room Air 05/28/16 12:13 99 Room Air Result Diagram: 05/29/16 0614 05/29/16 0614 Imaging Last Impressions Head CT 05/28/16 1213 Signed Impressions: Service Date/Time: Saturday, May 28, 2016 13:38 - CONCLUSION: Negative exam. Angus Xavier MD Chest X-Ray 05/28/16 1203 Signed Impressions: Service Date/Time: Saturday, May 28, 2016 12:15 - CONCLUSION: Patchy air-space disease right lower lobe. Jorje Wong MD FACR Objective Remarks GENERAL: Patient is a well-appearing female in no apparent distress. SKIN: Warm and dry. No rashes. HEAD: Atraumatic. Normocephalic. EYES: Pupils equal and round. No scleral icterus. No injection or drainage. ENT: No nasal bleeding or discharge. Mucous membranes pink and moist. NECK: Trachea midline. No JVD. CARDIOVASCULAR: Regular rate and rhythm. RESPIRATORY: No accessory muscle use. Clear to auscultation. Breath sounds equal bilaterally. GASTROINTESTINAL: Abdomen soft, non-tender, nondistended. Hepatic and splenic margins not palpable. MUSCULOSKELETAL: Extremities without clubbing, cyanosis, or edema. No obvious deformities. NEUROLOGICAL: Awake and alert. No obvious cranial nerve deficits. Motor grossly within normal limits. Normal speech. PSYCHIATRIC: Appropriate mood and affect; insight and judgment normal. Medications and IVs Inpatient Medications Acetaminophen (Tylenol) 650 mg Q4H PRN PO TEMPERATURE > 101 F; Start 05/28/16 at 14:45 Albuterol/ Ipratropium (Duoneb Neb) 1 ampule Q4HR NEB PRN INH SHORTNESS OF BREATH; Start 05/28/16 at 14:45 Aspirin 81 mg 81 mg DAILY PO Last administered on 05/29/16 09:55; Start at 09:00 Atorvastatin Calcium (Lipitor) 10 mg HS PO Last administered on 05/28/16 20:14 ; Start 05/28/16 at 21:00 Bisacodyl (Dulcolax Supp) 10 mg DAILY PRN RECTAL CONSTIPATION; Start 05/28/16 at 14:45 Ceftriaxone Sodium/Sodium Chloride (Rocephin Inj/NS Inj) 100 ml @ 200 mls/hr Q24H IV ; Start 05/29/16 at 12:00 Doxycycline Hyclate 100 mg/ Sodium Chloride 100 ml @ 100 mls/hr Q12H IV Last administered on 05/29/16 04:18; Start 05/28/16 at 17:00 Enoxaparin Sodium (Lovenox Inj) 30 mg Q24H SQ Last administered on 05/28/16 17 :42; Start 05/28/16 at 14:45 Guaifenesin (Mucinex Er) 600 mg Q4HR PO Last administered on 05/29/16 09:56; Start 05/28/16 at 16:00 Guaifenesin/ Dextromethorphan 10 ml 10 ml Q4H PRN PO COUGH; Start 05/28/16 at 15:00 Methylprednisolone Sodium Succinate (SoluMEDROL INJ) 40 mg Q12H IV Last administered on 05/29/16 04:18; Start 05/28/16 at 14:45 Naloxone HCl (Narcan Inj) 0.4 mg UNSCH PRN IV SEE LABEL COMMENTS; Start at 14:45 Oseltamivir Phosphate (Tamiflu) 75 mg BID PO Last administered on 05/29/16 09: 55; Start 05/29/16 at 07:30 Sodium Chloride 1,000 ml @ 999 mls/hr BOLUS ONCE IV Last administered on 05/28 17:43; Start 05/28/16 at 15:00; Stop 05/28/16 at 16:00; Status DC Sodium Chloride (NS 1000 ml Inj) 1,000 ml @ 100 mls/hr Q10H IV Last administered on 05/29/16 10:01; Start 05/28/16 at 14:44 Sodium Chloride (NS Flush) 2 ml BID IV FLUSH Last administered on 05/29/16 09: 00; Start 05/28/16 at 21:00 Urinary Catheter: No Vascular Central Line Catheter: No A/P Assessment and Plan 65 y/o pleasant female with PMHx of recurrent sinus infections, viral cardiopathy in 2013 that resulted in an EF of 20% --> corrected to 59% in 2015, and bronchitis, who presented to [facility] via [facility] after ahving a syncopal episode at an urgent care. Found to be hypotensive to 78/50, and satting at 85% . CXR showed RLL patchy infiltrate, she has received Rocephin x 1 and will be admitted for syncope work-up, community acquired pneumonia, and +Flu. Discharge Planning Discharge likely today, pending echocardiogram result planning. Patient met inpatient criteria as of 05/28/16 due to prolonged QT. Problem List: (1) Pneumonia Status: Acute Plan: Community-acquired, mild, likely complicated by dehydration. Clinically improved since yesterday. Patient received doxycycline IV (100mg BID) x 2 and Rocephin 1g IV. Will transition to doxycycline PO for six more days (100mg BID). Hospital Course: -CXR on admission showed patchy airspace disease in RLL which was treated as CAP -Rocephin 1 g q 24 hr IV (05/28-05/29) -Doxy instead of Azithro for atypical coverage (100 mg q 12 hr IV) given QT prolongation. (05/28-current) -Solumedrol 40 q 12 hr IV -Breathing tx (duonebs) q 6 hrs schedule, albuterol neb q 2 hr PRN SOB - no wheezing, will not continue at discharge -Guaifen-DM 200-20 mg 10 mg q 4 hours cough -Sputum culture, legionella and strep ag in urine - negative -Incentive spirometry -Vitals q 4 hours, O2 as needed. (2) Prolonged Q-T interval on ECG Status: Acute Plan: ECHO to rule out worsening cardiomyopathy --> shows mildly reduced systolic function, EF 45-50%, normal wall motion, moderate AR, mild dilation of left atrium. Limited repeat echocardiogram reviewed by Dr. Jean-Baptiste and patient is cleared for discharge home with follow-up with her personal welder operator in [place] QT in 2016 was 490 - QTC on admission is 510 Avoid QT prolonging meds - i.e. Macrolides and Zofran. Close cardiology follow-up once home --has appointment next month (3) Syncope Status: Resolved Plan: Impression: Likely related to dehydration and underlying infection (Flu / CAP). Not concerning for seizures. Cannot rule out cardiac origin. Hypotension noted on admission likely contributory and resolved. -s/p IVF with symptomatic improvement -Echo to rule out worsening cardiomyopathy discussed below -Trop and EKG x 3 negative for acute ischemia; LBBB has been seen on previous EKG in May 2015 -Head CT was negative for acute change (infarct or bleed) -Orthostatic Vitals ordered and wnl -ASA 81 mg daily (4) Influenza B Status: Acute Plan: Tamiflu 75 mg PO BID x 5 days Recommend 75mg daily prophylaxis for x 10 days Counseled on hydration, contact precautions Rest Droplet precautions (5) Hx of cardiomyopathy Status: Acute Plan: Echo as above. On Coreg per cardiology, held this admission, possibly used for cardioprotection , however, recommended holding medication and calling welder operator to discuss dose as her BP is normal range (was hypotensive at admission) (6) Nutrition, metabolism, and development symptoms Status: Acute Plan: Nut: Reg basic Electrolytes: at goal. DVT: Lovenox 30 mg sq daily with SCDs. dw Dr. Saba Problem Qualifiers (1) Pneumonia: Qualified Code: J18.9 - Pneumonia of both lower lobes due to infectious organism (2) Syncope: Qualified Code: R55 - Syncope, unspecified syncope type Ella Nayak MD R1 May 29, 2016 12:32
[2016-05-29] MEDS: ENOXAPARIN SODIUM 30 MG/0.3 ML SYRINGE SQ SCH (12:55)
--- NOTE | 2016-05-29 13:38 | EKG ---
Date Performed: 05/28/2016 Time Performed: 18:36:07 PTAGE: 65 years EKG: SINUS BRADYCARDIA LEFT BUNDLE BRANCH BLOCK ABNORMAL ECG PREVIOUS TRACING : 05/28/2016 12.22 Compared to prior tracing no significant change DOCTOR: Vadim Nayak Interpretating Date/Time 05/29/2016 13:35:33
--- NOTE | 2016-05-29 15:01 | EKG ---
Date Performed: 05/28/2016 Time Performed: 12:22:16 PTAGE: 65 years EKG: SINUS BRADYCARDIA Left bundle branch block. ABNORMAL ECG NO PREVIOUS TRACING DOCTOR: Vadim Nayak Interpretating Date/Time 05/29/2016 15:00:33
[2016-05-29] MEDS ORDERED: [UNRECOGNIZED DRUG - CODE] PO (15:34)
== END 2016-05-29 16:39 | disposition home or self-care (01) | DRG 194 ==
LOC: NEPC 11:57 → NEDA 14:26 → NEPFCDU 18:34 → OBSVTOIN 05-29 08:42
PROVIDERS: ADMIT Family Medicine; ATTEND Family Medicine
DX: J10.08 Influenza due to other identified influenza virus with other specified pneumonia (principal); I42.9 Cardiomyopathy, unspecified; I11.9 Hypertensive heart disease without heart failure; E83.51 Hypocalcemia; E11.9 Type 2 diabetes mellitus without complications; D64.9 Anemia, unspecified; R55 Syncope and collapse; E86.0 Dehydration; Z86.73 Personal history of transient ischemic attack (TIA), and cerebral infarction without residual deficits; N28.9 Disorder of kidney and ureter, unspecified; Z79.82 Long term (current) use of aspirin
CPT/HCPCS: 70450; 71010; 80053; 81001; 82550; 82948; 83605; 83735; 83880; 84484; 85025; 85610; 85730; 87040; 87449; 87804; 93005; 93306; 94150; 94640; 94664; 96365; G0378; G8987-GP; G8988-GP; J0696; J1650; J2920; J7030